=== PATIENT | male | born 1985 | race American Indian/Alaskan Native ===

== ENCOUNTER 2023-06-20 07:01 | Inpatient (IN) | payer MEDICAID, OTHER ==
--- NOTE | 2023-06-20 07:44 | ED ---
Overdose HPI - General Chief Complaint: Overdose Stated Complaint: Anxiety Time Seen by Provider: 06/20/23 07:06 Source: patient, EMS, RN notes reviewed Mode of arrival: EMS Limitations: no limitations - History of Present Illness Initial Comments: 38-year-old male presents emergency department with chief complaint of methamphetamine use, suicide ideation. Patient states that he has been using meth daily. He states he is hearing voices. He states that he wants to consult because of these voices. He denies any self-harm. Patient denies any physical complaints. Patient denies any current alcohol use. - Related Data Home Medications Medication Instructions Recorded Confirmed hydrOXYzine HCL [Atarax] 25 mg PO TID PRN 06/20/23 06/20/23 risperiDONE [RisperDAL] 1 mg PO BID 06/20/23 06/20/23 traZODone HCL [Desyrel] 50 mg PO DIRECTED 06/20/23 06/20/23 Allergies Allergy/AdvReac Type Severity Reaction Status Date / Time No Known Allergies Allergy Verified 06/20/23 11:04 Review of Systems ROS Statement: Those systems with pertinent positive or pertinent negative responses have been documented in the HPI. ROS Other: All systems not noted in ROS Statement are negative. Past Medical History Past Medical History: No Reported History History of Any Multi-Drug Resistant Organisms: None Reported Past Surgical History: No Surgical Hx Reported Past Psychological History: Anxiety, Depression, PTSD Smoking Status: Never smoker Past Alcohol Use History: None Reported Past Drug Use History: Marijuana, Methamphetamine General Exam Limitations: no limitations General appearance: alert, in no apparent distress Head exam: Present: atraumatic, normocephalic, normal inspection Eye exam: Present: normal appearance, PERRL, EOMI. Absent: scleral icterus, conjunctival injection, periorbital swelling ENT exam: Present: normal exam, normal oropharynx, mucous membranes moist Neck exam: Present: normal inspection, full ROM. Absent: tenderness, meni ngismus, lymphadenopathy Respiratory exam: Present: normal lung sounds bilaterally. Absent: respiratory distress, wheezes, rales, rhonchi, stridor Cardiovascular Exam: Present: regular rate, normal rhythm, normal heart sounds. Absent: systolic murmur, diastolic murmur, rubs, gallop, clicks Neurological exam: Present: alert, oriented X3 Skin exam: Present: warm, dry, intact, normal color. Absent: rash Course Vital Signs 06/20/23 06/20/23 07:46 10:10 Temperature 97.8 F Pulse Rate 105 H 105 H Respiratory 24 20 Rate Blood Pressure 137/85 149/89 O2 Sat by Pulse 98 98 Oximetry Medical Decision Making - Medical Decision Making Was pt. sent in by a medical professional or institution (, PA, LEGAL TRANSCRIPTIONIST, urgent care, hospital, or custodial...) When possible be specific @ -No Did you speak to anyone other than the patient for history (EMS, parent, family, police, friend...)? What history was obtained from this source @ -No Did you review nursing and triage notes (agree or disagree)? Why? @ -I reviewed and agree with nursing and triage notes Were old charts reviewed (outside hosp., previous admission, EMS record, old EKG, old radiological studies, urgent care reports/EKG's, custodial records)? Report findings @ -No old charts were reviewed Differential Diagnosis (chest pain, altered mental status, abdominal pain women, abdominal pain men, vaginal bleeding, weakness, fever, dyspnea, syncope, headache, dizziness, GI bleed, back pain, seizure, CVA, palpatations, mental health, musculoskeletal)? @ -[Differential Mental Health Depression, anxiety, bipolar, psychosis, schizophrenia, borderline personality, situational depression, adjustment disorder, behavioral disorder, brain tumor, malingering, substance abuse, encephalopathy, medication reaction, dementia, hypothyroidism, degenerative neurologic disorder, lupus.... This is not meant to be all-inclusive list EKG interpreted by me (3pts min.). @ -None X-rays interpreted by me (1pt min.). @ -None done CT interpreted by me (1pt min.). @ -None done U/S interpreted by me (1pt. min.). @ -None done What testing was considered but not performed or refused? (CT, X-rays, U/S, labs)? Why? @ -None What meds were considered but not given or refused? Why? @ -None Did you discuss the management of the patient with other professionals (professionals i.e. , PA, LEGAL TRANSCRIPTIONIST, lab, RT, psych nurse, social organization professor, pump stitcher, teacher, stream control officer, rn case management)? Give summary @ -[Patient evaluated by EPS recommended inpatient treatment Was smoking cessation discussed for >3mins.? @ -No Was critical care preformed (if so, how long)? @ -No Were there social determinants of health that impacted care today? How? (Homeles sness, low income, unemployed, alcoholism, drug addiction, transportation, low edu. Level, literacy, decrease access to med. care, assisted, rehab)? @ -No Was there de-escalation of care discussed even if they declined (Discuss DNR or withdrawal of care, Hospice)? DNR status @ -No What co-morbidities impacted this encounter? (DM, HTN, Smoking, COPD, CAD, Cancer, CVA, ARF, Chemo, Hep., AIDS, mental health diagnosis, sleep apnea, morbid obesity)? @ -None Was patient admitted / discharged? Hospital course, mention meds given and route, prescriptions, significant lab abnormalities, going to OR and other pertinent info. @ -Admitted to [facility] for psychiatric treatment Undiagnosed new problem with uncertain prognosis? @ -No Drug Therapy requiring intensive monitoring for toxicity (Heparin, Nitro, Insul in, Cardizem)? @ -No Were any procedures done? @ -No Diagnosis/symptom? @ -[Depression, suicidal ideation, methamphetamine abuse Acute, or Chronic, or Acute on Chronic? @ -Acute Uncomplicated (without systemic symptoms) or Complicated (systemic symptoms)? @ -complicated Side effects of treatment? @ -[No Exacerbation, Progression, or Severe Exacerbation? @ -No Poses a threat to life or bodily function? How? (Chest pain, [place], [place], pneumonia, PE, COPD, DKA, ARF, appy, cholecystitis, CVA, Diverticulitis, Homicidal, Suicidal, threat to staff... and all critical care pts) @ -[Yes patient is suicidal - Lab Data Result diagrams: 06/20/23 10:48 06/20/23 10:48 Lab Results 06/20/23 06/20/23 06/20/23 Range/Units 10:48 10:48 10:48 WBC 10.8 H (3.8-10.6) k/uL RBC 4.78 (4.30-5.90) m/uL Hgb 14.9 (13.0-17.5) gm/dL Hct 43.9 (39.0-53.0) % MCV 91.8 (80.0-100.0) fL MCH 31.1 (25.0-35.0) pg MCHC 33.9 (31.0-37.0) g/dL RDW 11.9 (11.5-15.5) % Plt Count 386 (150-450) k/uL MPV 7.0 Neutrophils % 85 % Lymphocytes % 10 % Monocytes % 3 % Eosinophils % 0 % Basophils % 0 % Neutrophils # 9.2 H (1.3-7.7) k/uL Lymphocytes # 1.1 (1.0-4.8) k/uL Monocytes # 0.3 (0-1.0) k/uL Eosinophils # 0.1 (0-0.7) k/uL Basophils # 0.0 (0-0.2) k/uL Sodium 143 (137-145) mmol/L Potassium 4.3 (3.5-5.1) mmol/L Chloride 111 H (98-107) mmol/L Carbon Dioxide 24 (22-30) mmol/L Anion Gap 8 mmol/L BUN 13 (9-20) mg/dL Creatinine 1.10 (0.66-1.25) mg/dL Est GFR (CKD-EPI)AfAm >90 (>60 ml/min/1.73 sqM) Est GFR (CKD-EPI)NonAf 85 (>60 ml/min/1.73 sqM) Glucose 119 H (74-99) mg/dL Calcium 9.8 (8.4-10.2) mg/dL Total Bilirubin 0.8 (0.2-1.3) mg/dL AST 23 (17-59) U/L ALT 23 (4-49) U/L Alkaline Phosphatase 70 (38-126) U/L Total Protein 7.5 (6.3-8.2) g/dL Albumin 4.9 (3.5-5.0) g/dL Urine Opiates Screen Not Detected (NotDetected) Ur Oxycodone Screen Not Detected (NotDetected) Urine Methadone Screen Not Detected (NotDetected) Ur Barbiturates Screen Not Detected (NotDetected) U Tricyclic Antidepress Not Detected (NotDetected) Ur Phencyclidine Scrn Not Detected (NotDetected) Ur Amphetamines Screen Detected H (NotDetected) U Methamphetamines Scrn Detected H (NotDetected) U Benzodiazepines Scrn Detected H (NotDetected) Urine Cocaine Screen Not Detected (NotDetected) U Marijuana (THC) Screen Detected H (NotDetected) SARS-CoV-2 (PCR) (Not Detectd) 06/20/23 Range/Units 10:58 WBC (3.8-10.6) k/uL RBC (4.30-5.90) m/uL Hgb (13.0-17.5) gm/dL Hct (39.0-53.0) % MCV (80.0-100.0) fL MCH (25.0-35.0) pg MCHC (31.0-37.0) g/dL RDW (11.5-15.5) % Plt Count (150-450) k/uL MPV Neutrophils % % Lymphocytes % % Monocytes % % Eosinophils % % Basophils % % Neutrophils # (1.3-7.7) k/uL Lymphocytes # (1.0-4.8) k/uL Monocytes # (0-1.0) k/uL Eosinophils # (0-0.7) k/uL Basophils # (0-0.2) k/uL Sodium (137-145) mmol/L Potassium (3.5-5.1) mmol/L Chloride (98-107) mmol/L Carbon Dioxide (22-30) mmol/L Anion Gap mmol/L BUN (9-20) mg/dL Creatinine (0.66-1.25) mg/dL Est GFR (CKD-EPI)AfAm (>60 ml/min/1.73 sqM) Est GFR (CKD-EPI)NonAf (>60 ml/min/1.73 sqM) Glucose (74-99) mg/dL Calcium (8.4-10.2) mg/dL Total Bilirubin (0.2-1.3) mg/dL AST (17-59) U/L ALT (4-49) U/L Alkaline Phosphatase (38-126) U/L Total Protein (6.3-8.2) g/dL Albumin (3.5-5.0) g/dL Urine Opiates Screen (NotDetected) Ur Oxycodone Screen (NotDetected) Urine Methadone Screen (NotDetected) Ur Barbiturates Screen (NotDetected) U Tricyclic Antidepress (NotDetected) Ur Phencyclidine Scrn (NotDetected) Ur Amphetamines Screen (NotDetected) U Methamphetamines Scrn (NotDetected) U Benzodiazepines Scrn (NotDetected) Urine Cocaine Screen (NotDetected) U Marijuana (THC) Screen (NotDetected) SARS-CoV-2 (PCR) Not Detected (Not Detectd) Disposition Clinical Impression: Methamphetamine abuse, Suicidal ideation, Depression Disposition: TRANSFER TO PSYCH HOSP/UNIT Referrals: None,Stated [Primary Care Provider] - 1-2 days Time of Disposition: 12:29
[2023-06-20] MEDS: LORazepam 2 MG/ML INJ IM STA (07:56)
[2023-06-20 10:59] LABS: Basophils % (A) 0 %; Eosinophils # (A) 0.1 k/uL (0-0.7); Eosinophils % (A) 0 %; HCT 43.9 % (39.0-53.0); HGB 14.9 gm/dL (13.0-17.5); Lymphocytes # (A) 1.1 k/uL (1.0-4.8); Lymphocytes % (A) 10 %; MCH 31.1 pg (25.0-35.0); MCHC 33.9 g/dL (31.0-37.0); MCV 91.8 fL (80.0-100.0); Monocytes # (A) 0.3 k/uL (0-1.0); Monocytes % (A) 3 %; Neutrophils # (A) 9.2 k/uL (1.3-7.7); Neutrophils % (A) 85 %; Platelet Count 386 k/uL (150-450); RBC 4.78 m/uL (4.30-5.90); RDW 11.9 % (11.5-15.5); WBC 10.8 k/uL (3.8-10.6)
[2023-06-20 11:29] LABS: ALT 23 U/L (4-49); AST 23 U/L (17-59); African American GFR (CKD) >90 (>60 ml/min/1.73 sqM); Albumin 4.9 g/dL (3.5-5.0); Alkaline Phosphatase 70 U/L (38-126); Anion Gap 8 mmol/L; Blood Urea Nitrogen 13 mg/dL (9-20); Calcium 9.8 mg/dL (8.4-10.2); Carbon Dioxide 24 mmol/L (22-30); Chloride 111 mmol/L (98-107); Glucose 119 mg/dL (74-99); Non-African American GFR(CKD) 85 (>60 ml/min/1.73 sqM); Potassium 4.3 mmol/L (3.5-5.1); Sodium 143 mmol/L (137-145); Total Bilirubin 0.8 mg/dL (0.2-1.3); Total Protein 7.5 g/dL (6.3-8.2)
[2023-06-20 11:30] LABS: Amphetamine Screen,Urine Detected (NotDetected); Barbiturate Screen,Urine Not Detected (NotDetected); Benzodiazepines Screen,Urine Detected (NotDetected); Cocaine Screen,Urine Not Detected (NotDetected); Methadone Screen, Urine Not Detected (NotDetected); Opiate Screen,Urine Not Detected (NotDetected); Oxycodone Screen, Urine Not Detected (NotDetected); Phencyclidine Screen,Urine Not Detected (NotDetected); Tricyclic Antidepressant,Urine Not Detected (NotDetected); Urn Cannabinoid Scrn Detected (NotDetected)
[2023-06-20 13:05] LABS: Appearance,Urine Clear (Clear); Bilirubin,Urine Negative (Negative); Blood,Urine Small (Negative); Color,Urine Yellow; Glucose,Urine (UA) Negative (Negative); Ketones,Urine 1+ (Negative); Leukocyte Esterase,Urine Negative (Negative); Mucus,Urine Many /hpf; Nitrite,Urine Negative (Negative); Protein,Urine 1+ (Negative); RBC,Urine 6 /hpf (0-5); Specific Gravity,Urine 1.037 (1.001-1.035); Squamous Epithelial Cell,Urine <1 /hpf (0-4); Urobilinogen,Urine <2.0 mg/dL (<2.0); WBC,Urine <1 /hpf (0-5)
[2023-06-20] MEDS ORDERED: MAG HYDROX/AL HYDROX/SIMETH 30 ML CUP PO PRN (13:45)
[2023-06-20] MEDS ORDERED: MAGNESIUM HYDROXIDE 2,400 MG/30 ML CUP PO PRN (13:45)
[2023-06-20] MEDS ORDERED: HALOPERIDOL LACTATE 5 MG/ML 1 ML VIAL IM PRN (13:50)
[2023-06-20] MEDS: ACETAMINOPHEN TAB 325 MG TAB PO PRN (15:46)
[2023-06-20] MEDS: hydrOXYzine HCL 25 MG TAB PO PRN (15:46)
[2023-06-20] MEDS: haloperidoL 5 MG TAB PO PRN (18:09)
[2023-06-20] MEDS: traZODone HCL 50 MG TAB PO PRN (21:42)
[2023-06-21] MEDS: NICOTINE 14MG/24HR PATCH TRANSDERM SCH (08:18)
--- NOTE | 2023-06-21 11:39 | P.HP ---
Psychiatric H&P - . H&P Date: 06/21/23 History & Physical: Allergies Allergy/AdvReac Type Severity Reaction Status Date / Time No Known Allergies Allergy Verified 06/20/23 11:04 Vital Signs Temp 98.2 F 06/20/23 16:02 Pulse 120 H 06/21/23 08:36 Resp 16 06/21/23 08:36 BP 130/79 06/21/23 08:36 Pulse Ox 97 06/20/23 16:02 FiO2 Intake & Output 06/20/23 06/21/23 06/21/23 18:59 06:59 18:59 Weight 91.2 kg Laboratory Last Values WBC 10.8 k/uL (3.8-10.6) H 06/20/23 10:48 RBC 4.78 m/uL (4.30-5.90) 06/20/23 10:48 Hgb 14.9 gm/dL (13.0-17.5) 06/20/23 10:48 Hct 43.9 % (39.0-53.0) 06/20/23 10:48 MCV 91.8 fL (80.0-100.0) 06/20/23 10:48 MCH 31.1 pg (25.0-35.0) 06/20/23 10:48 MCHC 33.9 g/dL (31.0-37.0) 06/20/23 10:48 RDW 11.9 % (11.5-15.5) 06/20/23 10:48 Plt Count 386 k/uL (150-450) 06/20/23 10:48 MPV 7.0 06/20/23 10:48 Neutrophils % 85 % 06/20/23 10:48 Lymphocytes % 10 % 06/20/23 10:48 Monocytes % 3 % 06/20/23 10:48 Eosinophils % 0 % 06/20/23 10:48 Basophils % 0 % 06/20/23 10:48 Neutrophils # 9.2 k/uL (1.3-7.7) H 06/20/23 10:48 Lymphocytes # 1.1 k/uL (1.0-4.8) 06/20/23 10:48 Monocytes # 0.3 k/uL (0-1.0) 06/20/23 10:48 Eosinophils # 0.1 k/uL (0-0.7) 06/20/23 10:48 Basophils # 0.0 k/uL (0-0.2) 06/20/23 10:48 Sodium 143 mmol/L (137-145) 06/20/23 10:48 Potassium 4.3 mmol/L (3.5-5.1) 06/20/23 10:48 Chloride 111 mmol/L (98-107) H 06/20/23 10:48 Carbon Dioxide 24 mmol/L (22-30) 06/20/23 10:48 Anion Gap 8 mmol/L 06/20/23 10:48 BUN 13 mg/dL (9-20) 06/20/23 10:48 Creatinine 1.10 mg/dL (0.66-1.25) 06/20/23 10:48 Est GFR (CKD-EPI)AfAm >90 (>60 ml/min/1.73 sqM) 06/20/23 10:48 Est GFR (CKD-EPI)NonAf 85 (>60 ml/min/1.73 sqM) 06/20/23 10:48 Glucose 119 mg/dL (74-99) H 06/20/23 10:48 Calcium 9.8 mg/dL (8.4-10.2) 06/20/23 10:48 Total Bilirubin 0.8 mg/dL (0.2-1.3) 06/20/23 10:48 AST 23 U/L (17-59) 06/20/23 10:48 ALT 23 U/L (4-49) 06/20/23 10:48 Alkaline Phosphatase 70 U/L (38-126) 06/20/23 10:48 Total Protein 7.5 g/dL (6.3-8.2) 06/20/23 10:48 Albumin 4.9 g/dL (3.5-5.0) 06/20/23 10:48 TSH 1.670 mIU/L (0.465-4.680) 06/21/23 08:17 Urine Color Yellow 06/20/23 10:48 Urine Appearance Clear (Clear) 06/20/23 10:48 Urine pH 6.0 (5.0-8.0) 06/20/23 10:48 Ur Specific [place] 1.037 (1.001-1.035) H 06/20/23 10:48 Urine Protein 1+ (Negative) H 06/20/23 10:48 Urine Glucose (UA) Negative (Negative) 06/20/23 10:48 Urine Ketones 1+ (Negative) H 06/20/23 10:48 Urine Blood Small (Negative) H 06/20/23 10:48 Urine Nitrite Negative (Negative) 06/20/23 10:48 Urine Bilirubin Negative (Negative) 06/20/23 10:48 Urine Urobilinogen <2.0 mg/dL (<2.0) 06/20/23 10:48 Ur Leukocyte Esterase Negative (Negative) 06/20/23 10:48 Urine RBC 6 /hpf (0-5) H 06/20/23 10:48 Urine WBC <1 /hpf (0-5) 06/20/23 10:48 Ur Squamous Epith Cells <1 /hpf (0-4) 06/20/23 10:48 Urine Mucus Many /hpf (None) H 06/20/23 10:48 Urine Opiates Screen Not Detected (NotDetected) 06/20/23 10:48 Ur Oxycodone Screen Not Detected (NotDetected) 06/20/23 10:48 Urine Methadone Screen Not Detected (NotDetected) 06/20/23 10:48 Ur Barbiturates Screen Not Detected (NotDetected) 06/20/23 10:48 U Tricyclic Antidepress Not Detected (NotDetected) 06/20/23 10:48 Ur Phencyclidine Scrn Not Detected (NotDetected) 06/20/23 10:48 Ur Amphetamines Screen Detected (NotDetected) H 06/20/23 10:48 U Methamphetamines Scrn Detected (NotDetected) H 06/20/23 10:48 U Benzodiazepines Scrn Detected (NotDetected) H 06/20/23 10:48 Urine Cocaine Screen Not Detected (NotDetected) 06/20/23 10:48 U Marijuana (THC) Screen Detected (NotDetected) H 06/20/23 10:48 SARS-CoV-2 (PCR) Not Detected (Not Detectd) 06/20/23 10:58 06/21/23 11:32 This is a psychiatric evaluation on Lauro Mullins who is a 38-year-old male who presents to the ER with depression and anxiety and agitation feelings of helplessness and hopelessness Patient reports that he is being using several drugs that includes methamphetamines benzos cannabis for more than 2 years and that he has been experiencing auditory and visual hallucinations He states that he has racing thoughts Patient also had reported suicidal thoughts to the staff but his suicidal thoughts continues to fluctuate Patient also admits that he wants help and wants to get better He says that he is currently taking Risperdal and hydroxyzine and does not feel that it is helping He states that he is currently homeless but used to work in a construction project engineer He states that he needs to get back on the right track in life He denies attending any substance use program in the past Past history personal social history Patient remains very vague about the his past history of any follow-up or treatments He states that that he has family but is not too close with them at this time He says is currently homeless Mental status examination: Patient presents a disheveled appearance Behavior: Patient is seated without any agitated behavior. Speech: Patient's speech is fluent and nonpressured. Mood/Affect: Patient reports mood is depressed and anxious, affect is congruent and constricted. Suicidality/Homicidality: Patient denies having any homicidal ideation intent or plan. Denies any suicidal ideations intent or plan to harm remains unreliable and has told different staff members about feeling suicidal and is currently kept on one-to-one observation Perceptions: Patient denies any visual hallucinations and denies any auditory hallucinations Though content/process: There is no evidence of any delusional thought content and thought process is linear and goal-directed. [place]. Memory and concentration: AOX3, grossly intact for the purposes of this session. Can spell "WORLD" backwards Judgment and insight: poor/impulsive STRENGTHS/WEAKNESSES: strength is that patient is resilient. Weakness is that patient has poor judgment and is impulsive INTELLECT: average IMPRESSIONS: Major depressive disorder, recurrent, with psychotic features Polysubstance use disorder that includes methamphetamine and cannabis Rule out Borderline personality disorder Stimulant use disorder Cannabis use disorder Nicotine dependence PLAN: -Patient is admitted under voluntary status to MHU for stabilization of psychiatric symptoms and safety. Patient has signed adult voluntary form and medication consent and is placed in patient's chart. -Medications : Will start on Zyprexa 10 mg at bedtime to start with We'll also start gabapentin 300 mg 3 times a day for anxiety Hydroxyzine and Haldol PRN for agitation/aggression -Patient was counselled on substance abuse would be a good candidate for referral to a substance use program -Patient was informed of the risks, benefits and side effects of the medication and patient verbally consented to taking the medications. Patient signed med consent form and was placed in chart. -Internal Medicine consult to perform medical evaluation and physical. -NRT - nicotine patch -SW on board for discharge planning. Encourage patient to participate in groups to work on coping skills. Emiliano Talamantes M.D.
[2023-06-21] MEDS: GABAPENTIN 300 MG CAP PO SCH (16:03)
[2023-06-21] MEDS: OLANZapine 10 MG TAB PO SCH (21:28)
--- NOTE | 2023-06-22 09:24 | P.PN ---
Subjective Progress Note Date: 06/22/23 Principal diagnosis: IMPRESSIONS: Major depressive disorder, recurrent, with psychotic features Polysubstance use disorder that includes methamphetamine and cannabis Rule out Borderline personality disorder Stimulant use disorder Cannabis use disorder Nicotine dependence Subjective data: The patient was seen chart was reviewed and case discussed with the nursing staff Patient was resting comfortably in his bed and at this time was on one-to-one observation Patient reports that he is feeling better he says that the voices have diminished but they're still there He denies any suicidal or homicidal patient again asked if his voices could get permanent and how long does he have to maintain abstinence and what things he can do to get himself better We discussed mainly about control over his substance use problems and to maintain compliance with his treatment and medications Mental status examination: Mental status examination: Patient presents a disheveled appearance Behavior: Patient is seated without any agitated behavior. Speech: Patient's speech is fluent and nonpressured. Mood/Affect: Patient reports mood is less depressed and anxious, at one point went asking about his hallucinations patient seemed to get somewhat tearful affect is congruent and constricted. Suicidality/Homicidality: Patient denies having any homicidal ideation intent or plan. Denies any suicidal ideations intent or plan to harm patient also requested if he could be taken up the finger foods Perceptions: Patient denies any visual hallucinations and denies any auditory hallucinations Though content/process: There is no evidence of any delusional thought content and thought process is linear and goal-directed. [place]. Memory and concentration: AOX3, grossly intact for the purposes of this session. Can spell "WORLD" backwards Judgment and insight: poor/impulsive STRENGTHS/WEAKNESSES: strength is that patient is resilient. Weakness is that patient has poor judgment and is impulsive INTELLECT: average IMPRESSIONS: Major depressive disorder, recurrent, with psychotic features Polysubstance use disorder that includes methamphetamine and cannabis Rule out Borderline personality disorder Stimulant use disorder Cannabis use disorder Nicotine dependence PLAN: -Patient is admitted under voluntary status to MHU for stabilization of psychiatric symptoms and safety. Patient has signed adult voluntary form and medication consent and is placed in patient's chart. -Medications : Will start on Zyprexa 10 mg at bedtime to start with We'll also start gabapentin 300 mg 3 times a day for anxiety Hydroxyzine and Haldol PRN for agitation/aggression -Patient was counselled on substance abuse would be a good candidate for referral to a substance use program -Patient was informed of the risks, benefits and side effects of the medication and patient verbally consented to taking the medications. Patient signed med consent form and was placed in chart. -Internal Medicine consult to perform medical evaluation and physical. -NRT - nicotine patch -SW on board for discharge planning. Encourage patient to participate in groups to work on coping skills. Emiliano Talamantes M.D. Objective - Vital Signs Vital signs: Vital Signs Temp 98.2 F 06/20/23 16:02 Pulse 120 H 06/21/23 08:36 Resp 16 06/21/23 08:36 BP 130/79 06/21/23 08:36 Pulse Ox 97 06/20/23 16:02 FiO2 - Labs CBC & Chem 7: 06/20/23 10:48 06/20/23 10:48
[2023-06-22] MEDS: OLANZapine 5 MG TAB PO ONE (23:15)
--- NOTE | 2023-06-23 14:41 | P.PN ---
Progress Note - Text Progress Note Date: 06/23/23 Interval History: Patient was seen bedside this afternoon. He was sedated this morning and states that he has been feeling sleepy since being on the medication. However, he was feeling more anxious at night and was agreeable to dosing the Zyprexa at bedtime. He also reports that his mood has been "good ". He says he visited with his aunt today and that the visit went well. He reports good appetite and denies other concerns. Patient denies any auditory, visual hallucinations and denies any paranoia or delusions. Patient denies any side effects from the medications and has been compliant with meds. Vital Signs Temp 97.2 F L 06/23/23 06:10 Pulse 119 H 06/23/23 06:10 Resp 15 06/23/23 06:10 BP 133/81 06/23/23 06:10 Pulse Ox 97 06/20/23 16:02 FiO2 Mental Status Exam: General Appearance: Patient appears to be stated age is alert, directable, and cooperative. Disheveled, somnolent Behavior: Patient is calmly seated without any agitated behavior. Sedated Speech: Patient's speech is fluent and nonpressured. Mood/Affect: Mood is improving mildly, affect is congruent and constricted. Suicidality/Homicidality: Patient denies having any suicidal or homicidal ideation intent or plan. Perceptions: Patient denies any visual hallucinations and denies any auditory hallucinations Though content/process: There is no evidence of any delusional thought content and thought process is linear and goal-directed. Memory and concentration: AOX3, grossly intact for the purposes of this session Judgment and insight: Improving mildly Assessment Psychotic disorder, unspecified - substance-induced psychotic disorder vs MDD with psychotic features Depressive disorder, unspecified - substance-induced psychotic disorder vs MDD with psychotic features Polysubstance use disorder that includes methamphetamine and cannabis Rule out Borderline personality disorder Stimulant use disorder Cannabis use disorder Nicotine dependence Plan: -Patient is admitted under voluntary status to MHU for stabilization of psychiatric symptoms and safety. Patient has signed adult voluntary form and medication consent and is placed in patient's chart. -Medications : Change Zyprexa 10 mg to bedtime Decrease gabapentin 300 mg TID to BID Hydroxyzine and Haldol PRN for agitation/aggression -Patient was counselled on substance abuse would be a good candidate for refe rral to a substance use program -Patient was informed of the risks, benefits and side effects of the medication and patient verbally consented to taking the medications. Patient signed med consent form and was placed in chart. -Internal Medicine consult to perform medical evaluation and physical. -NRT - nicotine patch -SW on board for discharge planning. Encourage patient to participate in groups to work on coping skills.
[2023-06-23] MEDS: OLANZapine 10 MG TAB PO SCH (21:09)
[2023-06-23] MEDS: GABAPENTIN 300 MG CAP PO SCH (21:10)
--- NOTE | 2023-06-24 02:55 | P.HPIM ---
Past Medical History Past Medical History: No Reported History History of Any Multi-Drug Resistant Organisms: None Reported Past Surgical History: No Surgical Hx Reported Past Psychological History: Anxiety, Depression, PTSD Smoking Status: Never smoker Past Alcohol Use History: None Reported Past Drug Use History: Marijuana, Methamphetamine Medications and Allergies Home Medications Medication Instructions Recorded Confirmed Type hydrOXYzine HCL [Atarax] 25 mg PO TID PRN 06/20/23 06/20/23 History risperiDONE [RisperDAL] 1 mg PO BID 06/20/23 06/20/23 History traZODone HCL [Desyrel] 50 mg PO DIRECTED 06/20/23 06/20/23 History Allergies Allergy/AdvReac Type Severity Reaction Status Date / Time No Known Allergies Allergy Verified 06/20/23 11:04 Physical Exam Vitals: Vital Signs Temp Pulse Resp BP 06/23/23 06:10 97.2 F L 119 H 15 133/81 Results CBC & Chem 7: 06/20/23 10:48 06/20/23 10:48 Thrombosis Risk Factor Assmnt - Choose All That Apply Any of the Below Risk Factors Present?: No Other Risk Factors: No Other congenital or acquired thrombophilia - If yes, enter type in comment: No Thrombosis Risk Factor Assessment Level: Very Low Risk
--- NOTE | 2023-06-24 02:57 | P.MDCNMH ---
History of Present Illness H&P Date: 06/24/23 Chief Complaint: Medical eval 38-year-old male with no significant past medical history he was brought into the hospital for evaluation of suicidal ideation patient admits to polysubstance abuse mainly meth. He has voices in his head that he is seeking help with voices are not telling him anything in specific he denies any fever, chills, cough, sore throat, chest pain , trouble breathing , nausea , vomiting, abd pain , changes in urinary or bowel habits. review of systems Pertinent positives as noted in HPI. All other systems were reviewed and are negative on exam Constitutional: No acute distress, Eyes: Anicteric sclerae, moist conjunctiva, Pupils equal round reactive to light Lungs: Clear to auscultation Clear to percussion Normal respiratory effort, no accessory muscle use Cardiovascular: Heart regular in rate and rhythm, No murmurs, gallops, or rubs No peripheral edema Abdominal: Soft Nontender, no guarding, rebound or rigidity Abdomen moving with respiration Normoactive bowel sounds Psychiatric: Alert and oriented to person, place and time Neuro Muscles Strength 5/5 in all 4 extremities Past Medical History Past Medical History: No Reported History History of Any Multi-Drug Resistant Organisms: None Reported Past Surgical History: No Surgical Hx Reported Past Psychological History: Anxiety, Depression, PTSD Smoking Status: Never smoker Past Alcohol Use History: None Reported Past Drug Use History: Marijuana, Methamphetamine Medications and Allergies Home Medications Medication Instructions Recorded Confirmed Type hydrOXYzine HCL [Atarax] 25 mg PO TID PRN 06/20/23 06/20/23 History risperiDONE [RisperDAL] 1 mg PO BID 06/20/23 06/20/23 History traZODone HCL [Desyrel] 50 mg PO DIRECTED 06/20/23 06/20/23 History Allergies Allergy/AdvReac Type Severity Reaction Status Date / Time No Known Allergies Allergy Verified 06/20/23 11:04 Physical Exam Vitals: Vital Signs Temp Pulse Resp BP 06/23/23 06:10 97.2 F L 119 H 15 133/81 Cranial Nerve Examination - Cranial Nerves Cranial Nerve II- Optic: Intact Cranial Nerve III- Oculomotor: Intact Cranial Nerve IV- Trochlear: Intact Cranial Nerve V- Trigeminal: Intact Cranial Nerve - Abducens: Intact Cranial Nerve VII- Facial: Intact Cranial Nerve VIII- Auditory: Intact Cranial Nerve IX- Glossopharyngeal: Intact Cranial Nerve X- Vagus: Intact Cranial Nerve XI- Accessory: Intact Cranial Nerve XII- Hypoglossal: Intact Results CBC & Chem 7: 06/20/23 10:48 06/20/23 10:48 Assessment and Plan Assessment: Acute psychosis Management by psych Blood work overall unremarkable White count 10.8 hemoglobin 14.9 renal function unremarkable liver function unremarkable TSH 1.67 unremarkable urine Polysubstance abuse Urine drug screen positive for meth, amphetamine, benzos, marijuana Stable from medical standpoint Thank for this consultation
--- NOTE | 2023-06-24 10:20 | P.PN ---
Progress Note - Text Progress Note Date: 06/24/23 Interval History: Patient was seen bedside this afternoon. Patient was more alert and less wolf osman this morning. He says that since Zyprexa has been moved to bedtime, he has been feeling significantly better. He reports tolerating the medication well and would like to be continued on it for auditory hallucinations. He endorses experiencing some auditory hallucinations with whispers yesterday evening but says that he has not experienced any other hallucinations since then. He reports having slept well and also received trazodone 50 mg when necessary for sleep last night. He endorses that his mood is currently "great ". He would like to be continued on the combination of Zyprexa and Neurontin. Discussed medications for her depressed mood. Patient admits that he has depressed mood at baseline. After risks, benefits, alternatives were discussed, patient was agreeable with being started on Prozac daily. Patient denies any auditory, visual hallucinations and denies any paranoia or delusions currently. Patient denies any side effects from the medications and has been compliant with meds. Vital Signs Temp 97.1 F L 06/24/23 06:50 Pulse 81 06/24/23 06:50 Resp 16 06/24/23 06:50 BP 125/66 06/24/23 06:50 Pulse Ox 99 06/24/23 06:50 FiO2 Mental Status Exam: General Appearance: Patient appears to be stated age is alert, directable, and cooperative. Disheveled Behavior: Patient is calmly seated without any agitated behavior. Sedated Speech: Patient's speech is fluent and nonpressured. Mood/Affect: Mood is improving mildly, affect is congruent, brighter. Suicidality/Homicidality: Patient denies having any suicidal or homicidal i deation intent or plan. Perceptions: Patient denies any visual hallucinations and denies any auditory hallucinations Though content/process: There is no evidence of any delusional thought content and thought process is linear and goal-directed. Memory and concentration: AOX3, grossly intact for the purposes of this session Judgment and insight: Improving mildly Assessment Psychotic disorder, unspecified - substance-induced psychotic disorder vs MDD with psychotic features Depressive disorder, unspecified - substance-induced depressive disorder vs MDD with psychotic features Polysubstance use disorder that includes methamphetamine and cannabis Rule out Borderline personality disorder Stimulant use disorder Cannabis use disorder Nicotine dependence Plan: -Patient is admitted under voluntary status to MHU for stabilization of psychiatric symptoms and safety. Patient has signed adult voluntary form and medication consent and is placed in patient's chart. -Medications : Zyprexa 10 mg bedtime gabapentin 300 mg BID Start Prozac 20 mg daily for low mood trazodone 50 mg qhs prn for sleep Hydroxyzine and Haldol PRN for agitation/aggression -Patient was counselled on substance abuse would be a good candidate for referral to a substance use program -Patient was informed of the risks, benefits and side effects of the medication and patient verbally consented to taking the medications. Patient signed med consent form and was placed in chart. -Internal Medicine consult to perform medical evaluation and physical. -NRT - nicotine patch -SW on board for discharge planning. Encourage patient to participate in groups to work on coping skills.
[2023-06-24] MEDS: FLUoxetine HCL 20 MG CAP PO SCH (12:15)
--- NOTE | 2023-06-25 12:03 | P.PN ---
Progress Note - Text Progress Note Date: 06/25/23 Interval History: Patient was seen today laying in bed, he was awoken by technical publications writer. He appeared to be disheveled in appearance. He states that he is feeling a bit tired today. Claims that he has been sleeping well at nighttime. He spoke about coming in for "methamphetamine induced psychosis". He states that he was hearing voices and was paranoid however that has been mildly improving. States that the medications have been working very well for him. He claims that he has been going to some groups, has been eating fairly, claims that his mood and anxiety have been improving. He did express interest in calling access line today and getting into rehab. At this time patient denies any suicidal or homical ideations, intent or plan. Patient denies any auditory, visual hallucinations and denies any paranoia or delusions. Patient denies any side effects from the medications and has been compliant with meds. Mental Status Exam: General Appearance: Patient appears to be stated age is alert, directable, and cooperative. Disheveled, improving Behavior: Patient is calmly seated without any agitated behavior. Sedated, improving Speech: Patient's speech is fluent and nonpressured. Mood/Affect: Mood is improving mildly, affect is congruent, brighter. Suicidality/Homicidality: Patient denies having any suicidal or homicidal ideation intent or plan. Perceptions: Patient denies any visual hallucinations and denies any auditory hallucinations Though content/process: There is no evidence of any delusional thought content and thought process is linear and goal-directed. Memory and concentration: AOX3, grossly intact for the purposes of this session Judgment and insight: Improving mildly Assessment: Psychosis likely secondary to stimulant use Depressive disorder, unspecified Stimulant use disorder Cannabis use disorder Nicotine dependence Plan: -Patient is admitted under voluntary status to MHU for stabilization of psychiatric symptoms and safety. Patient has signed adult voluntary form and medication consent and is placed in patient's chart. -Medications : decrease Zyprexa 7.5 mg bedtime for psychosis/mood stabilization, d/c gabapentin, continue with Prozac 20 mg daily for mood, trazodone 50 mg qhs prn for sleep Hydroxyzine and Haldol PRN for agitation/aggression -NRT - nicotine patch -SW on board for discharge planning. Encourage patient to participate in groups to work on coping skills. Patient will call access line today to get into rehab. Likely discharge Sunday
[2023-06-25] MEDS: OLANZapine 7.5 MG TAB PO SCH (21:33)
[2023-06-26 07:02] VITALS: RESP 16
--- NOTE | 2023-06-26 12:10 | P.PN ---
Progress Note - Text Progress Note Date: 06/26/23 Interval History: Patient was seen today in his room, and agreeable to speak to comic book writer. Patient states that he is "miles better" today, and that his anxiety is at a minimum. Patient states the medication regimen is working well for him. He claims that he has been going to some groups, has been eating fairly, claims that his mood and anxiety have been improving. Design Supervisor spoke with the patient about rehab. Patient called the access line yesterday, and was on hold for 2 hours, and pressed the button for a call back, however, did not receive a call back. Patient will continue to try to get in contact. Patient appears to be in a good mood, and is smiling during the interview. Better groomed today. At this time patient denies any suicidal or homical ideations, intent or plan. Patient denies any auditory, visual hallucinations and denies any paranoia or delusions. Patient denies any side effects from the medications and has been compliant with meds. Mental Status Exam: General Appearance: Patient appears to be stated age is alert, directable, and cooperative. Behavior: Patient is calmly seated without any agitated behavior. improving Speech: Patient's speech is fluent and nonpressured. Mood/Affect: Mood is improving mildly, affect is congruent, brighter. Suicidality/Homicidality: Patient denies having any suicidal or homicidal ideation intent or plan. Perceptions: Patient denies any visual hallucinations and denies any auditory hallucinations Though content/process: There is no evidence of any delusional thought content and thought process is linear and goal-directed. Memory and concentration: AOX3, grossly intact for the purposes of this session Judgment and insight: Improving Assessment: Psychosis likely secondary to stimulant use Depressive disorder, unspecified Stimulant use disorder Cannabis use disorder Nicotine dependence Plan: -Patient is admitted under voluntary status to MHU for stabilization of psychiatric symptoms and safety. Patient has signed adult voluntary form and medication consent and is placed in patient's chart. -Medications : increase Zyprexa 10 mg bedtime for psychosis/mood stabilization, Prozac 20 mg daily for mood, trazodone 50 mg qhs prn for sleep Hydroxyzine and Haldol PRN for agitation/aggression -NRT - nicotine patch -SW on board for discharge planning. Encourage patient to participate in groups to work on coping skills. Patient will call access line again today to get into rehab. Discharge Sunday to Aunts home.
[2023-06-26] MEDS ORDERED: MAG HYDROX/AL HYDROX/SIMETH 355 ML BOTTLE PO PRN (15:25)
[2023-06-26] MEDS: OLANZapine 10 MG TAB PO SCH (21:21)
[2023-06-27 07:10] VITALS: BP 108/71; PULSE 79; TEMP 97.6
--- NOTE | 2023-06-27 11:14 | P.DS ---
Providers Date of admission: 06/20/23 13:41 Expected date of discharge: 06/27/23 Attending physician: Soren Lee MD Consults: 06/20/23 13:45 Consult Physician Routine Consulting Provider: Aylin Marks Consult Reason/Comments: h&p Do you want consulting provider notified?: Yes Primary care physician: Stated None - Discharge Diagnosis(es) (1) Psychosis Current Visit: Yes Status: Acute Priority: High (2) Depression, unspecified Current Visit: Yes Status: Acute Priority: Medium (3) Stimulant use disorder Current Visit: Yes Status: Acute Priority: High (4) Cannabis use disorder Current Visit: Yes Status: Acute Priority: Medium (5) Nicotine dependence Current Visit: Yes Status: Acute Priority: Low Hospital Course: Admission HPI: Admission note was completed by Dr. Talamantes "This is a psychiatric evaluation on Lauro Mullins who is a 38-year-old male who presents to the ER with depression and anxiety and agitation feelings of helplessness and hopelessness Patient reports that he is being using several drugs that includes methamphetamines benzos cannabis for more than 2 years and that he has been experiencing auditory and visual hallucinations He states that he has racing thoughts Patient also had reported suicidal thoughts to the staff but his suicidal th oughts continues to fluctuate Patient also admits that he wants help and wants to get better He says that he is currently taking Risperdal and hydroxyzine and does not feel that it is helping He states that he is currently homeless but used to work in a building construction supervisor He states that he needs to get back on the right track in life He denies attending any substance use program in the past" Hospital course: Upon admission to the unit patient was directable and agreeable to commence treatment and signed adult voluntary form. Patient got along well with other patients on the unit and followed unit protocol. Patient was compliant with the medications and denied any side effects throughout hospital course. Patient was started on Zyprexa and increased to dose of 10 mg nightly for mood stab ilization/psychosis/insomnia, Prozac 20 mg daily for mood/anxiety, trazodone 50 mg nightly for sleep.. Patient spoke of his stressors and engaged in therapy both group and individual. Patient was also seen by medical team for history and physical exam. Throughout the course of the hospitalization patient gradually improved with regards to mood, anxiety, hallucinations/psychosis, sleep and became more future oriented with improved insight and judgment. On the day of discharge patient denied any suicidal or homicidal ideations intent or plan denied any auditory or visual hallucinations. Patient endorsed wanting to live for his health and family and also his sobriety. The patient denied any access to guns or weapons. Patient denied any paranoia and did not endorse any delusions. Patient does have a significant history of substance abuse and was counseled on abstaining from all substances including alcohol and marijuana. Patient did call the access line and is currently on the wait list for [facility], he will be able to follow up with them upon discharge for intake date. Patient was also counseled on the medications and need for regular compliance and was encouraged to follow-up with their outpatient appointment for mental health and also for primary care. Prior to discharge a family meeting will be arranged by director social welfare to answer any questions and ensure safety upon discharge. Mental status exam: General Appearance: Patient appears to be have longer hair, stated age is alert, pleasant, and cooperative. Patient is in no acute distress and has improved hygiene and grooming Behavior: Patient is calmly seated without any agitated behavior. Speech: Patient's speech is fluent and nonpressured. Mood/Affect: Patient reports their mood is "better", affect is congruent and euthymic. Suicidality/Homicidality: Patient denies having any suicidal or homicidal ideation intent or plan. Perceptions: Patient denies any auditory or visual hallucinations. Though content/process: There is no evidence of any delusional thought content and thought process is linear and goal-directed. More future oriented Memory and concentration: AOX3, grossly intact for the purposes of this session. Can spell "WORLD" backwards correctly. Judgment and insight: Chronically poor, however has improved with guarded prognosis Impression: Psychosis likely secondary to stimulant use Depressive disorder, unspecified Stimulant use disorder Cannabis use disorder Nicotine dependence Plan: -Continue with discharge today as patient has improved and stabilized psychiatrically and is not currently an imminent threat to himself and/or others. Patient will remain at chronically elevated risk for harm to self and/or others due to his impulsivity and polysubstance abuse. -Continue medications: Zyprexa 10 mg nightly for psychosis/mood stabilization, Prozac 20 mg daily for mood/anxiety, trazodone 50 mg nightly for sleep, Vistaril 50 mg daily as needed for anxiety. -Patient was counseled on the need for medication compliance and appropriate follow-up at mental health and also primary care for medical issues. Patient verbalized understanding and agreed. -Social work to arrange for and conduct family meeting to ensure safety upon discharge and answer any questions/concerns. Social work also to arrange for patients follow up appointments with [facility] for psychiatric care along with follow up with primary care provider. -Patient counseled on abstaining from recreational drugs and marijuana and alcohol. Was informed/educated on the adverse effects on their physical and mental health. Patient verbally agreed and understood. Patient is currently on the wait list for [facility], awaiting intake date. -Patient was instructed to return to the hospital or seek immediate medical care if their psychiatric or medical symptoms do worsen or reoccur. Allergies Allergy/AdvReac Type Severity Reaction Status Date / Time No Known Allergies Allergy Verified 06/20/23 11:04 Laboratory Results WBC 10.8 k/uL (3.8-10.6) H 06/20/23 10:48 RBC 4.78 m/uL (4.30-5.90) 06/20/23 10:48 Hgb 14.9 gm/dL (13.0-17.5) 06/20/23 10:48 Hct 43.9 % (39.0-53.0) 06/20/23 10:48 MCV 91.8 fL (80.0-100.0) 06/20/23 10:48 MCH 31.1 pg (25.0-35.0) 06/20/23 10:48 MCHC 33.9 g/dL (31.0-37.0) 06/20/23 10:48 RDW 11.9 % (11.5-15.5) 06/20/23 10:48 Plt Count 386 k/uL (150-450) 06/20/23 10:48 MPV 7.0 06/20/23 10:48 Neutrophils % 85 % 06/20/23 10:48 Lymphocytes % 10 % 06/20/23 10:48 Monocytes % 3 % 06/20/23 10:48 Eosinophils % 0 % 06/20/23 10:48 Basophils % 0 % 06/20/23 10:48 Neutrophils # 9.2 k/uL (1.3-7.7) H 06/20/23 10:48 Lymphocytes # 1.1 k/uL (1.0-4.8) 06/20/23 10:48 Monocytes # 0.3 k/uL (0-1.0) 06/20/23 10:48 Eosinophils # 0.1 k/uL (0-0.7) 06/20/23 10:48 Basophils # 0.0 k/uL (0-0.2) 06/20/23 10:48 Sodium 143 mmol/L (137-145) 06/20/23 10:48 Potassium 4.3 mmol/L (3.5-5.1) 06/20/23 10:48 Chloride 111 mmol/L (98-107) H 06/20/23 10:48 Carbon Dioxide 24 mmol/L (22-30) 06/20/23 10:48 Anion Gap 8 mmol/L 06/20/23 10:48 BUN 13 mg/dL (9-20) 06/20/23 10:48 Creatinine 1.10 mg/dL (0.66-1.25) 06/20/23 10:48 Est GFR (CKD-EPI)AfAm >90 (>60 ml/min/1.73 sqM) 06/20/23 10:48 Est GFR (CKD-EPI)NonAf 85 (>60 ml/min/1.73 sqM) 06/20/23 10:48 Glucose 119 mg/dL (74-99) H 06/20/23 10:[address] Glu mg/dL 117 mg/dL 06/21/23 08:17 Hemoglobin A1c 5.7 % (<=6.0) 06/21/23 08:17 Calcium 9.8 mg/dL (8.4-10.2) 06/20/23 10:48 Total Bilirubin 0.8 mg/dL (0.2-1.3) 06/20/23 10:48 AST 23 U/L (17-59) 06/20/23 10:48 ALT 23 U/L (4-49) 06/20/23 10:48 Alkaline Phosphatase 70 U/L (38-126) 06/20/23 10:48 Total Protein 7.5 g/dL (6.3-8.2) 06/20/23 10:48 Albumin 4.9 g/dL (3.5-5.0) 06/20/23 10:48 TSH 1.670 mIU/L (0.465-4.680) 06/21/23 08:17 Urine Color Yellow 06/20/23 10:48 Urine Appearance Clear (Clear) 06/20/23 10:48 Urine pH 6.0 (5.0-8.0) 06/20/23 10:48 Ur Specific [place] 1.037 (1.001-1.035) H 06/20/23 10:48 Urine Protein 1+ (Negative) H 06/20/23 10:48 Urine Glucose (UA) Negative (Negative) 06/20/23 10:48 Urine Ketones 1+ (Negative) H 06/20/23 10:48 Urine Blood Small (Negative) H 06/20/23 10:48 Urine Nitrite Negative (Negative) 06/20/23 10:48 Urine Bilirubin Negative (Negative) 06/20/23 10:48 Urine Urobilinogen <2.0 mg/dL (<2.0) 06/20/23 10:48 Ur Leukocyte Esterase Negative (Negative) 06/20/23 10:48 Urine RBC 6 /hpf (0-5) H 06/20/23 10:48 Urine WBC <1 /hpf (0-5) 06/20/23 10:48 Ur Squamous Epith Cells <1 /hpf (0-4) 06/20/23 10:48 Urine Mucus Many /hpf (None) H 06/20/23 10:48 Urine Opiates Screen Not Detected (NotDetected) 06/20/23 10:48 Ur Oxycodone Screen Not Detected (NotDetected) 06/20/23 10:48 Urine Methadone Screen Not Detected (NotDetected) 06/20/23 10:48 Ur Barbiturates Screen Not Detected (NotDetected) 06/20/23 10:48 U Tricyclic Antidepress Not Detected (NotDetected) 06/20/23 10:48 Ur Phencyclidine Scrn Not Detected (NotDetected) 06/20/23 10:48 Ur Amphetamines Screen Detected (NotDetected) H 06/20/23 10:48 U Methamphetamines Scrn Detected (NotDetected) H 06/20/23 10:48 U Benzodiazepines Scrn Detected (NotDetected) H 06/20/23 10:48 Urine Cocaine Screen Not Detected (NotDetected) 06/20/23 10:48 U Marijuana (THC) Screen Detected (NotDetected) H 06/20/23 10:48 SARS-CoV-2 (PCR) Not Detected (Not Detectd) 06/20/23 10:58 Vital Signs Temp 97.6 F 06/27/23 06:49 Pulse 79 06/27/23 06:49 Resp 16 06/27/23 06:49 BP 108/71 06/27/23 06:49 Pulse Ox 99 06/24/23 06:50 FiO2 Patient Condition at Discharge: Stable Plan - Discharge Summary Discharge Rx Participant: No New Discharge Prescriptions: New FLUoxetine HCL [PROzac] 20 mg PO DAILY 30 Days #30 cap OLANZapine [ZyPREXA] 10 mg PO HS 30 Days #30 tab Changed hydrOXYzine HCL [Atarax] 50 mg PO DAILY PRN 30 Days #60 tab PRN Reason: Anxiety traZODone HCL [Desyrel] 50 mg PO HS 30 Days #30 tab Discontinued risperiDONE [RisperDAL] 1 mg PO BID Discharge Medication List FLUoxetine HCL [PROzac] 20 mg PO DAILY 30 Days #30 cap 06/27/23 [Rx] OLANZapine [ZyPREXA] 10 mg PO HS 30 Days #30 tab 06/27/23 [Rx] hydrOXYzine HCL [Atarax] 50 mg PO DAILY PRN 30 Days #60 tab 06/27/23 [Rx] traZODone HCL [Desyrel] 50 mg PO HS 30 Days #30 tab 06/27/23 [Rx] Follow up Appointment(s)/Referral(s): [facility] [Outside] - 07/02/23 12:00 pm (07/02/2023 12:00PM - 1:00PM ALEJANDRA GIORDANO 07/10/2023 1:00PM - 2:00PM BEAR GALEANO ) None,Stated [Primary Care Provider] - 1-2 days Activity/Diet/Wound Care/Special Instructions: Avoid the use of street drugs and alcohol. Take all medications as prescribed. When you are in need of refills on your medications, please contact your medical provider and/or outpatient psychiatrist/provider to have this done. Please go to your scheduled outpatient appointment for aftercare treatment. If symptoms return or become worse, call the crisis line at and/or go to the nearest emergency room for evaluation. National Suicide Hotline 988. Discharge Disposition: HOME SELF-CARE
== END 2023-06-27 12:25 | disposition home or self-care (01) | DRG 751 ==
LOC: EC 07:01 → 3MHU 13:41
PROVIDERS: ADMIT Psychiatry & Neurology Psychiatry; ATTEND Psychiatry & Neurology Psychiatry
DX: F33.3 Major depressive disorder, recurrent, severe with psychotic symptoms (principal); Z28.310 Unvaccinated for COVID-19; Z11.52 Encounter for screening for COVID-19; F12.10 Cannabis abuse, uncomplicated; F60.3 Borderline personality disorder; G47.00 Insomnia, unspecified; R45.851 Suicidal ideations; F15.10 Other stimulant abuse, uncomplicated; F43.10 Post-traumatic stress disorder, unspecified; F17.203 Nicotine dependence unspecified, with withdrawal; R45.1 Restlessness and agitation; F41.9 Anxiety disorder, unspecified; Z59.00 Homelessness unspecified; Z71.51 Drug abuse counseling and surveillance of drug abuser; Z79.899 Other long term (current) drug therapy
CPT/HCPCS: 36415; 80053; 80306; 81001; 82075; 83036; 84443; 85025; 87635; 96372; 99285